=== PATIENT | male | born 1990 | race Caucasian/White ===

== ENCOUNTER → 2023-12-29 11:02 | Outpatient (REF) | payer OTHER, SELFPAY | LOC: RAD 11:02 | PROVIDERS: ATTENDING PHYSICIAN Surgery Vascular Surgery; FAMILY PHYSICIAN Family Medicine | DX: M79.645 Pain in left finger(s) (principal) | CPT/HCPCS: 73130 ==

== ENCOUNTER 2024-10-04 21:56 | Emergency (ER) | payer OTHER, SELFPAY ==
[2024-10-04 21:58] VITALS: BP 174/120
--- NOTE | 2024-10-05 00:08 | ED.GENMED ---
History of Present Illness
General
Chief Complaint: Musculo-Skeletal Complaint
Source: patient
Time Seen by Provider: 10/04/24 23:57
History of Present Illness
History of Present Illness:
34-year-old male with past medical history of hyperlipidemia presenting to the emergency department for evaluation after he injured his right fourth finger in a softball match stating a ground ball hit him directly on the right ring finger,
continued bleeding and pain prompted him to come to the ER for further evaluation. Unknown last tetanus. [id number]. No other injury sustained.
Past History
Past History
ED Past Medical History: Hypercholesterolemia and Other (L5-S1 herniation)
ED Past Surgical History: None
Social History
Tobacco: Former smoker
Alcohol: Occasional
Drug: None
Personal:
Living: with family
Review of Systems
Review of Systems
All Other Systems: ROS reviewed and negative except as documented in HPI and ROS
Phy Exam
Physical Exam
Physical Exam:
GENERAL: Alert , in no apparent distress
EYE: conjunctiva clear
Head: Normocephalic atraumatic
NECK: Supple,
ENT: mmm.
LUNGS: no acute respiratory distress
NEUROLOGICAL: Alert and oriented
SKIN: Warm and dry, skin intact.
MUSCULOSKELETAL: Right ring finger: The distalmost portion of the nail was a fold and there is subungual hematoma with slight oozing noted. No large laceration appreciated. remainder of extremities within normal limits.
PSYCH: Normal and appropriate interaction.
Scores
Heart Failure Risk
Heart Failure Risk Score: Not Applicable
Heart Score for Chest Pain Patients
STEMI patient?: Not applicable
Withdrawal Assessment of Alcohol
Withdrawal Assessment Completed?: Not applicable
Course
Orders/Labs/Results
Orders:
Orders
10/04/24 22:01
Finger(s)/Thumb 2 View Rt [CR Finger(s)/thumb Min 2 Vw Rt] Urgent
Comment:
Reason For Exam: injury
10/05/24 00:10
Tetanus/Diphth/Acelpertussis [Adacel] 0.5 ml IM .ONCE ONE
Vital Signs
Initial and Last Documented VS:
Initial Vital Signs
Temp Pulse Resp BP Pulse Ox
97.8 F 112 15 174/120 99
10/04/24 21:58 10/04/24 21:58 10/04/24 21:58 10/04/24 21:58 10/04/24 21:58
Last Documented Vital Signs
Temp Pulse Resp BP Pulse Ox
97.8 F 112 15 174/120 99
10/04/24 21:58 10/04/24 21:58 10/04/24 21:58 10/04/24 21:58 10/04/24 21:58
MDM/Problems Addressed
Differential Diagnosis Includes:
Fracture, contusion, subungual hematoma, nail avulsion
MDM/Problems Addressed:
34-year-old male presenting to the ER for evaluation of right ring finger injury that was sustained while playing in a softball game. X-ray ordered from triage does show a tuft fracture of the distal phalanx. Due to the continuous oozing will
place Gelfoam to help coagulate the area. Will update patient's tetanus. Given the subungual hematoma/nail avulsion and concern for potentially underlying laceration will cover for infection with Keflex. Patient declines anything for pain at this
time. Information for outpatient orthopedics provided. Stable for discharge home.
*Radiology
Radiology exam reviewed: preliminary read by ED provider (Tuft fracture)
*Pulse Oximetry
Patient hypoxic: no
*Critical Care Note
Total Time (30-74mins, 75-104mins- exclusive of procedures): Not Applicable
ED Attending Note
-
Portions of this chart may have been created with voice recognition software.� Occasional wrong word or��sound alike� substitutions may have occurred due to the inherent limitations of voice recognition software.
Discharge Plan
Departure
Patient Disposition: Home (Routine Discharge)
Date of Disposition: 10/05/24
Time of Disposition: 00:08
Patient with high blood pressure during this ER visit?: Yes
Discharge Problem:
Fracture of distal phalanx of right ring finger, Subungual hematoma of right ring finger
Instructions: Finger Fracture ED
Prescriptions:
New
cephalexin 500 mg tablet
500 mg PO BID 5 Days Qty: 10 0RF
Referrals:
Rodrigo Aldana MD [Active] - (Ortho - Please call for appointment [facility])
Interventions
Interventions:
*Risk Screen - Suicide Last Done: 10/04/24 21:58
*General Assessment Last Done: 10/04/24 21:58
*Neglect/Abuse Screening Last Done: 10/04/24 21:58
*ED- Fall Risk Assessment Last Done: 10/05/24 00:35
*ED COVID-19 Vaccine History Last Done: 10/04/24 21:58
*Nursing Disposition Last Done: 10/05/24 00:35
ED-Musculoskeletal Assessment Last Done: 10/05/24 00:34
Discharge Date and Time
Print Language: GAMBIAN
[2024-10-05] MEDS: ADACEL 0.5 ML IM (00:22)
== END 2024-10-05 00:35 | disposition home or self-care (01) ==
LOC: EMR 21:56
PROVIDERS: EMERGENCY PHYSICIAN Student in an Organized Health Care Education/Training Program; FAMILY PHYSICIAN Family Medicine
DX: S60.141A Contusion of right ring finger with damage to nail, initial encounter (principal); S62.634A Displaced fracture of distal phalanx of right ring finger, initial encounter for closed fracture; W21.07XA Struck by softball, initial encounter; Z87.891 Personal history of nicotine dependence; E78.00 Pure hypercholesterolemia, unspecified; Z23 Encounter for immunization
CPT/HCPCS: 99283; 90471; 73140; 90715

== ENCOUNTER → 2024-12-06 08:00 | Outpatient (REF) | payer OTHER, SELFPAY ==
[2024-12-06 09:12] LABS: HDL Cholesterol 55 mg/dl; LDL Cholesterol, Calculated 244 mg/dl; Total Cholesterol 316 mg/dl (50-199); Triglyceride 85 mg/dl (10-149); Very Low Density Lipoprotein 17 mg/dl (0-30)
== END ==
LOC: REG 08:00
PROVIDERS: ATTENDING PHYSICIAN Family Medicine; FAMILY PHYSICIAN Family Medicine
DX: S70.02XS Contusion of left hip, sequela (principal); E78.00 Pure hypercholesterolemia, unspecified
CPT/HCPCS: 36415; 80061